=== PATIENT | female | born 1945 | race Caucasian/White ===

== ENCOUNTER → 2016-11-20 | Outpatient (CLI) | payer OTHER | LOC: FIMAGING 08:48 | PROVIDERS: ATTEND Internal Medicine Hematology & Oncology | DX: M81.0 Age-related osteoporosis without current pathological fracture (principal) ==

== ENCOUNTER → 2017-02-13 | Outpatient (CLI) | payer OTHER | LOC: GIMAGING 10:56 | PROVIDERS: ATTEND Nurse Practitioner Acute Care | DX: R93.7 Abnormal findings on diagnostic imaging of other parts of musculoskeletal system (principal); S99.912A Unspecified injury of left ankle, initial encounter; W19.XXXA Unspecified fall, initial encounter | CPT/HCPCS: 73590-PO; 73610-PO ==

== ENCOUNTER → 2019-01-14 | Outpatient (CLI) | payer OTHER | LOC: FIMAGING 09:16 ==